=== PATIENT | female | born 1990 | race Caucasian/White ===

== ENCOUNTER 2019-03-03 09:06 | Inpatient (IN) ==
[2019-03-03] MEDS ORDERED: Ringers Solution, Lactated 1,000 ML IVC SCH (09:45)
[2019-03-03] MEDS ORDERED: *HR* Promethazine 25 MG/ML VIAL IVP ONE (09:47)
[2019-03-03] MEDS ORDERED: Ringers Solution, Lactated 1,000 ML ONE (09:47)
[2019-03-03] MEDS ORDERED: Naloxone 0.4 MG/ML INJ IVP PRN (09:59)
[2019-03-03] MEDS: Ondansetron 4 MG/2 ML VIAL IVP PRN ×2 (10:35→15:53)
[2019-03-03 10:54] LABS: Alanine Aminotransferase 10 Units/L (7-52); Albumin 3.2 g/dL (3.5-5.7); Albumin/Globulin Ratio 1.1 (1.1-2.2); Alkaline Phosphatase 191 Units/L (34-104); Amylase 57 Units/L (29-103); Aspartate Amino Transferase 17 Units/L (13-39); BUN/Creatinine Ratio 8 (6-26); Bilirubin,Direct 0.1 mg/dL (0.0-0.2); Bilirubin,Indirect 0.2 mg/dL (0.0-1.2); Bilirubin,Total 0.3 mg/dL (0.3-1.0); Blood Urea Nitrogen 3 mg/dL (6-20); Calcium 8.7 mg/dL (8.6-10.3); Carbon Dioxide 21 mEq/L (23-29); Chloride 107 mEq/L (98-107); Globulin 2.9 g/dL (2.4-3.5); Glucose 110 mg/dL (70-105); Lipase 96 Units/L (11-82); Osmolality,Calculated 279 (280-300); Potassium 3.5 mEq/L (3.5-5.1); Sodium 136 mEq/L (136-145); Total Protein 6.1 g/dL (6.4-8.9); eGFR For African Americans > 60 (> 60); eGFR For Non-African Americans > 60 (> 60)
[2019-03-03] MEDS ORDERED: Metoclopramide 10 MG/2 ML VIAL IVP ONE (11:12)
[2019-03-03 11:24] LABS: Basophils % 0.4 %; Eosinophils # 0.1 K/mcL (0.0-0.6); Eosinophils % 1.3 %; Hematocrit 40.9 % (35.3-44.9); Hemoglobin 13.4 g/dL (11.5-15.4); Immature Granulocytes % 0.5 % (0-4); Lymphocytes # 1.9 K/mcL (0.6-4.6); Lymphocytes % 18.9 %; Mean Corpuscular HGB Conc 32.8 g/dL (31.6-35.5); Mean Corpuscular Hemoglobin 28.7 pg (28.0-33.3); Mean Corpuscular Volume 87.6 fL (83.0-100.0); Mean Platelet Volume 10.8 fL (9.4-12.4); Monocytes # 0.5 K/mcL (0.0-1.3); Monocytes % 5.2 %; Neutrophils # 7.6 K/mcL (1.6-8.9); Platelet Count 306 K/mcL (140-400); Red Blood Count 4.67 M/mcL (3.82-4.97); Red Cell Distribution Width 13.7 % (11.5-14.5); Segmented Neutrophils % 73.7 %; White Blood Count 10.3 K/mcL (4.3-11.1)
[2019-03-03] MEDS ORDERED: Famotidine 20 MG/2 ML VIAL IVP ONE (11:48)
--- NOTE | 2019-03-03 18:16 | OB/GYN History & Physical ---
Date of Encounter: 03/03/19 Time of Encounter: 18:11 Assessment and Plan (1) 36 weeks gestation of Current visit: Yes Status: Acute 28yo at 36+3wks GA who presents with nausea, vomiting 1. Hx of Pancreatitis - denies VB/LOF/contraction(S) - diagnosed with pancreatitis (12/2018) with severely elevated lipase/amylase - presents today with similar abdominal pain: epigastric discomfort, nausea, vomiting - patient has been given IV zofran, phenergan, pepcid for her nausea which has helped - ordered labs: slightly elevated amylase but otherwise normal labs 2 Hx of PSA - currently a patient of Dr. Bonilla for subutex - UDS ordered to ensure this is not withdrawal - patient currently dosed at ___ 3. R/O Pre-Eclampsia - denies GOODWIN/CP/SOB - denies upper and lower extremity swelling - mild range BP ordered - normal CBC, LFTs, Creatinine, pending UPC Dispo: MD NORA History of Present Illness Chief complaint: abdominal pain HPI: Ms. Sandoval is a 28 year old female [id number] at 36+3wks GA who presents with epigastric discomfort and nausea with intractable vomiting. The patient has had a complicated by pancreatitis. This was not seen on imaging however she had elevated amylase, lipase(s) during her 12/27/2018 visit. She was hospitalized at that time and discharged to home. SHe is a patient of Dr. Bonilla and takes subutex daily. Her is also complicated by HSV, as she also has a history of abnormal PAP smears. SHe reports to have active movement. Her last delivery was at term in 2011. Denies vaginal bleeding. Denies leaking of fluid. Past Med Surg Social Fam HX - Past Medical History Medical history: no medical history Additional medical history: GENITAL HERPES Psychiatric history: anxiety, bipolar, depression - Past Surgical History Surgical History: cholecystectomy Additional surgical history: [place] teeth removed. Cholecystectomy at age 23 - Social History Smoking Status: Current every day smoker Packs per day: 1 Smokeless Tobacco Status: No Alcohol use: none Drug use: prescription drug abuse - Family History Mother Living Status: Still Living Hx Family Cardiac Disorders: No Hx Family Respiratory Disorders: No Hx Family Cancer: No Hx Family GI Disorders: No Hx Family Genitourinary Disorders: No Hx Family Endocrine Disorder: No Hx Family Musculoskeletal Disorders: No Hx Family Neuromuscular Disorders: No Hx Family Neurologic Disorders: No Hx Family HEENT Disorders: No Hx Family Autoimmune Disorders: No Hx Family Reproductive Disorders: No Hx Family Psychosocial Disorders: No Hx Family Medical Disorders: No Obstetrical History - Pregnancies : 4 Para: 1 Term: 1 : 0 Ab's: 2 Livin Medications and Allergies Acyclovir [Zovirax] 400 mg PO BID 12/02/18 [History] Buprenorphine HCl [Subutex] 8 mg SL BID 12/02/18 [History] Vits #90/Iron Fum/FA [ Formula Tablet] 1 tab PO DAILY 12/18/18 [History] Allergy/AdvReac Type Severity Reaction Status Date / Time codeine Allergy Rash Verified 09/30/18 14:17 hydrocodone [From Vicodin] Allergy Rash Verified 09/30/18 14:17 Penicillins [PCN] Allergy Anaphylaxis Verified 09/30/18 14:17 Sulfa (Sulfonamide Allergy Anaphylaxis Verified 09/30/18 14:17 Antibiotics) Exam - Constitutional Constitutional: well developed, well nourished, no acute distress - Neck Neck exam: full ROM - Lungs Respiratory exam: CTAB - Cardiovascular Cardiovascular exam: RRR - Breasts Breast: bilateral: normal - Abdomen Abdomen: Present: bowel sounds normal - Extremities Extremities exam: full ROM Deep Tendon Reflex Grade: 2+ Normal - Vagina Vagina: Present: normal moisture - Uterus Uterus exam: Present: normal size, normal contour Results Result Diagrams: 03/03/19 10:00 03/03/19 10:00 Abnormal lab results Carbon Dioxide 21 mEq/L (23-29) L 03/03/19 10:00 BUN 3 mg/dL (6-20) L 03/03/19 10:00 0.39 mg/dL (0.60-1.20) L 03/03/19 10:00 Glucose 110 mg/dL (70-105) H 03/03/19 10:00 279 (280-300) L 03/03/19 10:00 191 Units/L (34-104) H 03/03/19 10:00 11 mg/L (Less than 10) H 03/03/19 10:00 6.1 g/dL (6.4-8.9) L 03/03/19 10:00 3.2 g/dL (3.5-5.7) L 03/03/19 10:00 96 Units/L (11-82) H 03/03/19 10:00 All other labs normal. - VTE Reasons for not Prescribing Prophylaxis: Treatment not Indicated - Low risk for VTE
[2019-03-03] MEDS ORDERED: *HR* Buprenorphine HCl 2 MG SUBLINGUAL TABLET SL SCH (18:30)
[2019-03-03 18:32] LABS: Uric Acid 5.1 mg/dL (2.3-7.6)
[2019-03-03 18:53] LABS: Amphetamine Screen,Urine Negative ng/mL (Cutoff=1000); Barbiturate Screen,Urine Negative ng/mL (Cutoff=200); Benzodiazepines Screen,Urine Negative ng/mL (Cutoff=200); Cannabinoid Screen,Urine Negative ng/mL (Cutoff = 50); Cocaine Screen,Urine Negative ng/mL (Cutoff= 300); Opiate Screen,Urine Negative ng/mL (Cutoff=300); Phencyclidine Screen,Urine Negative ng/mL (Cutoff=25)
[2019-03-03 19:11] LABS: Protein/Creatinine Ratio,Urine 0.66 mg/mg (0.00-0.20)
[2019-03-03] MEDS: D5% in Lactated Ringers 1,000 ML IVC SCH (21:15)
[2019-03-03] MEDS: Metoclopramide 10 MG/2 ML VIAL IVP SCH (22:22)
[2019-03-04] MEDS: Ondansetron 4 MG/2 ML VIAL IVP SCH ×3 (00:02→17:00)
[2019-03-04] MEDS ORDERED: *HR* Labetalol 20 MG/4 ML SYRINGE IVP STA (02:03)
[2019-03-04] MEDS ORDERED: *HR* Labetalol 20 MG/4 ML SYRINGE IVP ONE (02:07)
[2019-03-04] MEDS: NIFEdipine XL (24 HR) 30 MG TAB.ER.24 PO SCH ×2 (03:35→15:59)
[2019-03-04] MEDS ORDERED: Famotidine 20 MG/2 ML VIAL IVP SCH (06:00)
[2019-03-04] MEDS: D5% in Lactated Ringers 1,000 ML IVC SCH (06:13)
[2019-03-04] MEDS: Metoclopramide 10 MG/2 ML VIAL IVP SCH ×3 (07:35→17:00)
--- NOTE | 2019-03-04 08:47 | OB/GYN Progress Note ---
Date of Encounter: 03/04/19 Time of Encounter: 08:46 - Assessment and Plan (1) 36 weeks gestation of Current Visit: Yes Status: Acute 28yo at 36+4wks GA with 1. Hx of Pancreatitis - Cont scheduled IV zofran, phenergan, pepcid for her nausea - Follow-up a.m. labs - Advance diet as tolerated - Anticipate discharge home if clinically improved 2 Hx of PSA - currently a patient of Dr. Bonilla for subutex (16 mg daily) - RUDS positive for buprenorphine - Continue 4 mg every 6 hours 3. Pre-Eclampsia without severe features - Urine protein creatinine ratio 0.66 - Continue 30 mg of Procardia XL daily - Blood pressure every 2 hours - Anticipate induction of labor on Thursday, March 07 when patient is 37 weeks and 0 days Subjective - Subjective Principal diagnosis: 1. Pancreatitis 2. IUP at 36.4WGA 3. preeclampsia without severe features Interval history: Patient doing well overall this morning. Last episode of emesis was several hours ago. She has Ice chips at bedside. The scheduled antibiotics are helping. Her epigastric pain is the same as it was during her last pancreatitis episode in December. She is feeling baby move. She denies headaches, vision changes, chest pain, shortness of breath, vaginal bleeding, leakage of fluid, contractions or other complaints. Antepartum ROS: movement normal Objective - Vital Signs Vital Signs: Intake and Output 03/03/19 03/04/19 03/04/19 23:59 07:59 15:59 Intake Total 1000 / 1000 Balance 1000 / 1000 Intake: IV Fluids 1000 / 1000 D5% & Lact. Ringers 1000 Ml Bag 1000 / 1000 1,000 ML @ 125 mls/hr IVC .Q8H [facility] Rx#:[id number] - Exam FHR: auscultation normal Auscultation: bilateral: normal Abdomen: Present: normal appearance, soft, gravid, tenderness (Tender with epigastric palpation, directly below xiphoid). Absent: distention Uterus: Present: normal - Labs Labs: Abnormal lab results Carbon Dioxide 21 mEq/L (23-29) L 03/03/19 10:00 BUN 3 mg/dL (6-20) L 03/03/19 10:00 0.39 mg/dL (0.60-1.20) L 03/03/19 10:00 Glucose 110 mg/dL (70-105) H 03/03/19 10:00 279 (280-300) L 03/03/19 10:00 191 Units/L (34-104) H 03/03/19 10:00 11 mg/L (Less than 10) H 03/03/19 10:00 6.1 g/dL (6.4-8.9) L 03/03/19 10:00 3.2 g/dL (3.5-5.7) L 03/03/19 10:00 96 Units/L (11-82) H 03/03/19 10:00 Protein/Creatinin Ratio 0.66 mg/mg (0.00-0.20) H 03/03/19 16:23 51 mg/dL (1-14) H 03/03/19 16:23 Ur Buprenorphine Scrn Positive ng/mL (Cutoff=5) H 03/03/19 16:23
[2019-03-04] MEDS: *HR* Buprenorphine HCl 2 MG SUBLINGUAL TABLET SL SCH ×2 (09:31→15:46)
[2019-03-04 10:17] LABS: Alanine Aminotransferase 8 Units/L (7-52); Albumin 3.1 g/dL (3.5-5.7); Albumin/Globulin Ratio 1.1 (1.1-2.2); Alkaline Phosphatase 197 Units/L (34-104); Aspartate Amino Transferase 17 Units/L (13-39); BUN/Creatinine Ratio 10 (6-26); Bilirubin,Direct 0.1 mg/dL (0.0-0.2); Bilirubin,Indirect 0.4 mg/dL (0.0-1.2); Bilirubin,Total 0.5 mg/dL (0.3-1.0); Blood Urea Nitrogen 4 mg/dL (6-20); Calcium 8.6 mg/dL (8.6-10.3); Carbon Dioxide 19 mEq/L (23-29); Chloride 106 mEq/L (98-107); Globulin 2.7 g/dL (2.4-3.5); Glucose 132 mg/dL (70-105); Osmolality,Calculated 279 (280-300); Potassium 3.8 mEq/L (3.5-5.1); Sodium 135 mEq/L (136-145); Total Protein 5.8 g/dL (6.4-8.9); eGFR For African Americans > 60 (> 60); eGFR For Non-African Americans > 60 (> 60)
[2019-03-04 12:25] LABS: Amylase 531 Units/L (29-103); Lipase 1445 Units/L (11-82)
[2019-03-04] MEDS ORDERED: Calcium Gluconate 1,000 MG/10 ML VIAL IV PRN (13:03)
[2019-03-04] MEDS ORDERED: Magnesium Sulfate 20 gm/500mL 20 GM/500 ML IV.SOLN IVC SCH (13:15)
[2019-03-04] MEDS ORDERED: miSOPROStol 25 MCG TABLET VG PRN (13:21)
[2019-03-04] MEDS ORDERED: Ringers Solution, Lactated 1,000 ML ONE (13:22)
[2019-03-04] MEDS ORDERED: Betamethasone Acet/SodPhos 30 MG/5 ML VIAL IM SCH (13:30)
[2019-03-04 15:01] LABS: Triglycerides 245 mg/dL (< 150)
--- NOTE | 2019-03-04 16:33 | Gastroenterology Consult Note ---
Date of Encounter: 03/04/19 Time of Encounter: 16:33 - Assessment and plan (1) Tobacco dependence Status: Acute (2) Tobacco abuse Status: Chronic (3) Acute pancreatitis Status: Acute Assessment and plan: IV hydration, IV H2RA. The etiology of her acute pancreatitis appears non biliary which is associated with a higher degree of maternal and complications.Presently she would be classified as MAP but, the sudden bump in her amylase and lipase, her pain and the fact that she has Preeclampsia would recommend transfer to a tertiary center such as [facility] for further managment. She very well could have Hypertriglyceridemia associated pancreatitis or AI pancreatitis or SOD dysfunction to name a few. DIscussed with attending, patient and her mother. Qualifiers: Pancreatitis type: unspecified pancreatitis type Acute pancreatitis complication: no infection or necrosis Qualified Code(s): K85.90 - Acute pancreatitis without necrosis or infection, unspecified - Time Spent With Patient Total time spent is greater than 50% in coordination of care (as documented) at patient's floor/unit and/or counseling patient: 25 - 35 minutes GI History of Present Illness - Data of Consult Requesting Physician: Candice Velazquez CNM - Consult Narrative Reason for consult: Acute pancreatitis History of present illness: Ms. Sandoval is a 28 year old female who I have been asked to consult on for epigastric abdominal pain and elevated amylase and lipase. This appears to be her third attack of acute pancreatitis that is documented. Her first was with her first and she apparently presented with gallstone pancreatitis. She had a lap cholecystectomy. She says she has been getting " twinges of pain" which dont last long between the attacks. She was recently admitted for acute pancreatitis. She has preeclampsia this . Apparently she ate some potato chips early in the morning yesterday and soon developed pain and the subsequent admission. An abdominal ultrasound revealed a normal CBD. Amylase and lipase shot up today. Past Med Surg Social Fam HX - Past Medical History Medical history: no medical history Additional medical history: GENITAL HERPES Psychiatric history: anxiety, bipolar, depression - Past Surgical History Surgical History: cholecystectomy Additional surgical history: [place] teeth removed. Cholecystectomy at age 23 - Social History Smoking Status: Current every day smoker Packs per day: 1 Smokeless Tobacco Status: No Alcohol use: none Drug use: prescription drug abuse - Family History Mother Living Status: Still Living Hx Family Cardiac Disorders: No Hx Family Respiratory Disorders: No Hx Family Cancer: No Hx Family GI Disorders: No Hx Family Genitourinary Disorders: No Hx Family Endocrine Disorder: No Hx Family Musculoskeletal Disorders: No Hx Family Neuromuscular Disorders: No Hx Family Neurologic Disorders: No Hx Family HEENT Disorders: No Hx Family Autoimmune Disorders: No Hx Family Reproductive Disorders: No Hx Family Psychosocial Disorders: No Hx Family Medical Disorders: No All systems PM: reviewed and no additional remarkable complaints except as stated Review of Systems: nausea, bloating, epigastric pain radiating to back. - Gastrointestinal Gastrointestinal: Present: abdominal pain, bloating Additional Comments: nausea - Constitutional General appearance: Present: mild distress, A&O X 3, answers questions appropriately - Head Head exam: Present: atraumatic, normal inspection, normocephalic - Eye Eye exam: Present: EOMI, PERRL, sclera anicteric - GI/Abdominal GI/Abdominal exam: Present: distended, guarding, normal bowel sounds, no peritoneal signs Results - Labs CBC & Chem 7: 03/03/19 10:00 03/04/19 09:23 Labs: Last Result 03/04/19 09:23 Calcium 8.6 Triglycerides 245 H Entire Visit 03/04/19 09:23 Total Bilirubin 0.5 AST 17 ALT 8 Amylase 531 H Lipase 1445 H Consult Discharge Plan - Plan Referrals: Checo Macias DO [Primary Care Provider] -
--- NOTE | 2019-03-04 17:09 | Anesthesia Evaluation PreOp ---
Date of Encounter: 03/04/19 Time of Encounter: 17:06 - Past History Planned Operation: A[facility]LA Cardiac History: HTN (PreEcclampsia) Pulmonary History: Smoker [employer] History: Denies Any Significant HX Other Medical History: Other (Pancreatitis this , elevated enzymes) Anesthesia History: No Prior Anesthetic Complications, Past Anesthesia : Yes Alcohol Use: none Drug use: prescription drug abuse Medications and Allergies Acyclovir [Zovirax] 400 mg PO BID 12/02/18 [History] Buprenorphine HCl [Subutex] 8 mg SL BID 12/02/18 [History] Vits #90/Iron Fum/FA [ Formula Tablet] 1 tab PO DAILY 12/18/18 [History] Allergy/AdvReac Type Severity Reaction Status Date / Time codeine Allergy Rash Verified 09/30/18 14:17 hydrocodone [From Vicodin] Allergy Rash Verified 09/30/18 14:17 Penicillins [PCN] Allergy Anaphylaxis Verified 09/30/18 14:17 Sulfa (Sulfonamide Allergy Anaphylaxis Verified 09/30/18 14:17 Antibiotics) - Meds/Allergy Pre-op Review Medications Reviewed: Yes Allergies Reviewed: Yes Beta Blockers on Current Med List: Yes (today, 0211) Anesthesia Results - Labs 03/03/19 10:00 03/04/19 09:23 Anesthesia Exam NPO (# of Hours): 4 Pain Scale: 5 Pain Scale Used: Numeric (1 - 10) - HEENT Pupil (Motor): Pupils equal Mallampati: II Teeth: Normal Oral Opening: Greater than 3 - [employer] LOC: Oriented [employer] Motor: Normal RUE, Normal LUE, Normal RLE, Normal LLE, Normal Face [employer] Sensory: Normal: RUE, LUE, RLE, LLE, Face - Cardiac Rhythm: Regular Murmur: None JVD: No Carotid Bruit: No - Pulmonary Breath Sounds: bilateral Clear Respiratory Effort: Symmetrical Anesthesia Assess/Plan ASA Score: 2 Level of consciousness: Cooperative, Oriented Anesthetic Plan: General, Epidural Autologous Blood: Yes Monitoring Plan: Standard Monitors Recovery Plan: PACU
--- NOTE | 2019-03-04 17:12 | OB/GYN Progress Note ---
Date of Encounter: 03/04/19 Time of Encounter: 17:07 - Assessment and Plan (1) 36 weeks gestation of Current Visit: Yes Status: Acute 28yo at 36+4wks GA with 1. Acute non-biliary Pancreatitis - Cont scheduled IV zofran, phenergan, pepcid for her nausea - Amylase elevated from 57-531, lipase elevated from 96-1445 with triglycerides of 245. - Status post GI consult. Recommendation to transfer to tertiary care center. - Discussed with MFM and accepted transfer. 2 history of polysubstance abuse - currently a patient of Dr. Bonilla for subutex (16 mg daily) - RUDS positive for buprenorphine - Continue 4 mg of Subutex every 6 hours - The patient is being transported with 14 tabs of 8 mg each Subutex and a sealed bag. Prescription filled and obtained from pharmacy in this sealed bag. 3. Pre-Eclampsia with severe features - Urine protein creatinine ratio 0.66 - Status post 60 mg of Procardia XL - Xiao catheter was strict I's and O's - Magnesium sulfate 2 g per hour, maximum IV fluid rate for all fluids at 125 mL per hour. Subjective - Subjective Principal diagnosis: 1. A/c Non-Biliary Pancreatitis 2. IUP @ 36.4wga 3. Pre-E w/ SF on Mag Interval history: 28yo @ 36.4wga was started on Magnesium Sulfate for preeclampsia with severe features as her urine protein creatinine ratio was 0.66 and her systolic blood pressures were 160 and greater. She received 30 mg of Procardia XL at 0330 and 1600. She received 5 mg IV push hydralazine at 1447 for a blood pressure of 160/101 and 10 mg of hydralazine at 1523 for a blood pressure of 162/111. Subsequent blood pressures have been 142-160/90-102. 25 g of Cytotec was placed, vaginally, at 1500 once the decision was made to proceed with induction for diagnosis of preeclampsia with severe features. Her loading dose of 4 g of magnesium sulfate was given at 1354. 12 mg of betamethasone was given at 1410. Dr. braulio Small with gastroenterology evaluated the patient and recommends transfer to tertiary care center, [facility], as complications with non-biliary pancreatitis can be severe. She is feeling baby move and she is feeling her contractions. She denies any headache, vision changes, new onset chest pain or shortness of breath, leakage of fluid or dysuria. She continues to have epigastric pain, just inferior to her xiphoid. Antepartum ROS: movement normal, contractions Objective - Vital Signs Vital Signs: Intake and Output 03/04/19 03/04/19 03/04/19 07:59 15:59 23:59 Intake Total 1000 / 1000 Balance 1000 / 1000 Intake: IV Fluids 1000 / 1000 D5% & Lact. Ringers 1000 Ml Bag 1000 / 1000 1,000 ML @ 125 mls/hr IVC .Q8H [facility] Rx#:[id number] - Exam FHR: auscultation normal, category 2 Auscultation: bilateral: normal Abdomen: Present: normal appearance, soft, gravid, tenderness (Tender to palpation over her epigastrium, inferior to xiphoid). Absent: distention Uterus: Present: normal Comments: Xiao catheter in place, back to gravity. Seizure precautions with pads on bed area SCDs bilaterally. - Labs Labs: Abnormal lab results Sodium 135 mEq/L (136-145) L 03/04/19 09:23 Carbon Dioxide 19 mEq/L (23-29) L 03/04/19 09:23 BUN 4 mg/dL (6-20) L 03/04/19 09:23 0.41 mg/dL (0.60-1.20) L 03/04/19 09:23 Glucose 132 mg/dL (70-105) H 03/04/19 09:23 279 (280-300) L 03/04/19 09:23 197 Units/L (34-104) H 03/04/19 09:23 11 mg/L (Less than 10) H 03/03/19 10:00 5.8 g/dL (6.4-8.9) L 03/04/19 09:23 3.1 g/dL (3.5-5.7) L 03/04/19 09:23 Triglycerides 245 mg/dL (< 150) H 03/04/19 09:23 Amylase 531 Units/L (29-103) H 03/04/19 09:23 1445 Units/L (11-82) H 03/04/19 09:23 Protein/Creatinin Ratio 0.66 mg/mg (0.00-0.20) H 03/03/19 16:23 51 mg/dL (1-14) H 03/03/19 16:23 Ur Buprenorphine Scrn Positive ng/mL (Cutoff=5) H 03/03/19 16:23
[2019-03-04] MEDS ORDERED: Epidural Premix (fent/bupiv) 110 ML EP SCH (17:15)
== END 2019-03-04 18:08 | disposition other institution (70) | DRG 566 ==
LOC: 1NENULAB → OBSVTOIN 09:06 → 1NENULAB 03-04 14:55
PROVIDERS: ADMIT Registered Nurse; ATTEND Registered Nurse